=== PATIENT | female | born 1960 | race Caucasian/White ===

== ENCOUNTER → 2024-01-06 06:18 | Day surgery (SDC) | payer BC, SELFPAY | LOC: GI 06:18 | PROVIDERS: ATTENDING PHYSICIAN Specialist | DX: Z12.11 Encounter for screening for malignant neoplasm of colon (principal); D12.3 Benign neoplasm of transverse colon; K63.5 Polyp of colon; K57.30 Diverticulosis of large intestine without perforation or abscess without bleeding; Z86.010 Personal history of colon polyps | CPT/HCPCS: 45385; 45380; 88305 ==